=== PATIENT | male | born 1955 | race Caucasian/White ===

== ENCOUNTER 2021-03-14 04:19 | Inpatient (IN) | payer OTHER ==
[~2021-03-14] VITALS: Ht 180.3 cm; Wt 123.8 kg
[2021-03-14 04:24] VITALS: BP 149/86
[2021-03-14 04:49] LABS: ABSOLUTE LYMPHOCYTES 0.7 thou/uL (0.8-5.3); ABSOLUTE MONOCYTES 0.4 thou/uL (0.0-1.2); ABSOLUTE NEUTROPHILS 4.7 thou/uL (1.6-8.1); BASOPHILS 0.4 %; HEMOGLOBIN 14.5 gm/dL (14.0-18.0); LYMPHOCYTES 12.5 %; MCH 28.4 pg (26.0-34.0); MCHC 33.8 g/dL (28.0-37.0); MONOCYTES 6.9 %; MPV 10.6 fl. (7.2-11.1); NUCLEATED RBCS 0 /100WBC; PLATELET COUNT* 94 thou/uL (150-400); POLYS 80.2 %; RBC 5.12 mil/uL (4.50-6.00); RDW-CV 14.3 % (10.5-14.5); WBC 5.8 thou/uL (4.0-11.0)
[2021-03-14 05:00] LABS: CALCIUM 8.5 mg/dL (8.5-10.1); CREATININE 0.9 mg/dL (0.6-1.3); POTASSIUM 3.6 mmol/L (3.5-5.1)
[2021-03-14 05:03] LABS: INR 1.1
[2021-03-14 05:11] LABS: ALBUMIN 3.4 g/dL (3.4-5.0); MAGNESIUM 2.1 mg/dL (1.8-2.4); TOTAL BILIRUBIN 0.8 mg/dL (<0.1-1.0); TOTAL PROTEIN 7.8 g/dL (6.4-8.2)
[2021-03-14 05:30] LABS: INFLUENZA A ANTIGEN Negative (Negative); INFLUENZA B ANTIGEN Negative (Negative)
--- NOTE | 2021-03-14 09:05 | EKG ---
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[facility] : 1955 Requested By: Renetta Fuller Order Number: [id number] MD: Manny Cheung Measurements Intervals [place] Rate: 74 P: 10 LA: 180 QRS: -62 QRSD: 114 T: 73 QT: 468 QTc: 520 Interpretive Statements Sinus rhythm Incomplete right bundle branch block Abnormal R-wave progression, late transition LVH with IVCD, LAD and secondary repol abnrm Prolonged QT interval No previous ECG available for comparison Electronically Signed On 03-14-2021 9:04:56 VERIFICATION REP by Manny Cheung [email or web address] <ELECTRONICALLY SIGNED> By: Manny Cheung MD, FACC 03/14/21 0904 1 1 Manny Cheung MD, FAC /EPI
[2021-03-14 09:54] VITALS: BP 135/71
[2021-03-14 10:45] VITALS: BP 141/72
[2021-03-14 11:30] VITALS: BP 132/77
[2021-03-14 17:50] VITALS: BP 131/69
[2021-03-14 19:40] VITALS: BP 134/70
--- NOTE | 2021-03-14 22:53 | CON ---
[address] [address] CONSULTATION Name: ROBINMIHAELA Sulema Room: [address] IN M.R.#: [id number] Admission: 03/14/21 Attend Phys: Edmundo Cho MD Discharge: Date of : 55 Report #: [id number] THIS REPORT FOR: cc: FAM - No family physician/PCP FAM - No family physician/PCP Andrea Winters MD ~ DATE OF CONSULTATION: 03/14/2021 REQUESTING PHYSICIAN: Marshall Roper DO. INDICATION FOR CONSULTATION: COVID-19. HISTORY OF PRESENT ILLNESS: This is a 65 years old gentleman. He states that he is a lifetime nonsmoker. He has not been vaccinated for COVID-19. His body mass index is elevated to 38. He is now presented with respiratory complaints for about a week's duration. He has had a high-grade fever, currently at 38.0, has had a cough, shortness of breath, small amounts of sputum production. He did not describe the color. No chest pain, no swelling of lower extremities, no calf pain. The patient, however, has had diarrhea. He is also reported to have nausea earlier. The patient is currently requiring 4 liters of oxygen to maintain O2 saturation in the low 90s. There is a CT chest performed, which does show extensive infiltrates. There is also small pulmonary embolus noted. REVIEW OF SYSTEMS: For 12 points is negative, except as mentioned above. PAST MEDICAL HISTORY: Obesity, body mass index is 38. There is mention of hypertension on the records; however, the patient is not reporting any medications for this. Bilateral hernia surgery. SOCIAL HISTORY: Lifetime nonsmoker. No known history of heavy alcohol use or illegal drug use. CURRENT MEDICATIONS: List in [place] reviewed. HOME MEDICATIONS: No home medications. ALLERGIES: No known drug allergies. FAMILY HISTORY: No pertinent family history. PHYSICAL EXAMINATION: GENERAL: He is alert, awake and oriented, does not appear to be in any distress. VITAL SIGNS: Has a pulse of 75 and a blood pressure of 132/77, saturating 93% on 4 liters nasal cannula. He is afebrile now with a temperature of 36.8. [place] [address] CONSULTATION Name: MIHAELA KELLY Room: [address] IN [facility]#: [id number] Admission: 03/14/21 Attend Phys: Edmundo Cho MD Discharge: Date of : 55 Report #: [id number] However, earlier today, he had a temperature of up to 38.0. HEENT: Head is normocephalic and atraumatic. NECK: Does not show raised JVP. CHEST: Breath sounds are bilaterally equal. No added sounds. HEART: Regular. There is no murmur. ABDOMEN: Soft and nontender. EXTREMITIES: Lower extremities do show 1+ edema bilaterally. There is some evidence of chronic venous insufficiency as well. NEUROLOGIC: Moves all extremities bilaterally equally and spontaneously with no focal deficit identified. ASSESSMENT AND PLAN: 1. Acute hypoxemic respiratory failure, primarily secondary to COVID-19; however, he does have a small pulmonary embolus as well. 2. COVID-19, would continue with dexamethasone. Also, I recommend starting remdesivir, follow LFTs. I do not feel strongly either way regarding administering or holding off on convalescent plasma. Actemra is not available at this time. We will follow LFTs while on remdesivir. 3. Acute pulmonary embolism. His platelets are decreased to 94. The potential benefit of giving him anticoagulation still appears to outweigh risks and therefore, I went ahead and ordered Lovenox. We will follow platelets. If he remains stable, then I will switch this over to Eliquis later. He does have some chronic venous insufficiency on lower extremities. Therefore, I will recommend doing venous Dopplers as well and we will obtain an echocardiogram as well. 4. Pulmonary infiltrates. We will also continue with ceftriaxone and order doxycycline to cover for secondary bacterial infections. More cultures and serologies are also ordered. 5. Obesity. We will have a low threshold of ordering a BiPAP while asleep if his condition was to deteriorate. 6. Possible component of bronchospasm. He already is on DuoNebs. 7. Gastrointestinal prophylaxis, Protonix. 8. Clostridium difficile prophylaxis, Lactinex. 9. Hyperglycemia, insulin sliding scale. Thanks for this consultation. <ELECTRONICALLY SIGNED> By: Andrea Winters MD 03/14/21 2253 1252 [id number] Winters MD /nt
[2021-03-15] VITALS: BP 113/63
[2021-03-15 04:00] VITALS: BP 131/79
[2021-03-15 08:00] VITALS: BP 108/67
[2021-03-15 12:13] VITALS: BP 131/54
--- NOTE | 2021-03-15 13:25 | 2DMMODE ---
[place] [address] 2 D/M-MODE ECHOCARDIOGRAM Name: MIHAELA KELLY Room: [address] IN .R.#: [id number] Admission: 03/14/21 Attend Phys: Edmundo Cho, Discharge: Date of : 55 Date of Service: 03/15/21 1324 Report #: [id number] THIS REPORT FOR: cc: FAM - No family physician/PCP FAM - No family physician/PCP Carlos Enrique Edwards MD [facility] ~ APPROVED REPORT Study performed: 03/15/2021 10:05:01 EXAM: Comprehensive 2D, Doppler, and color-flow Echocardiogram Patient Location: In-Patient Room #: 111 Status: routine BSA: 2.41 HR: 51 bpm BP: 115/64 mmHg Rhythm: NSR Other Information Study Quality: Good Indications Pulmonary Embolism 2D Dimensions IVSd: 13.56 (7-11mm) LVOT Diam: 23.80 (18-24mm) LVDd: 55.11 mm PWd: 11.84 (7-11mm) Ascending Ao: 36.33 (22-36mm) LVDs: 36.40 (25-40mm) Aortic Root: 37.57 mm Volumes Left Atrial Volume (Systole) LA ESV Index: 24.50 mL/m2 Aortic Valve AoV Peak Narciso.: 1.75 m/s AO Peak Gr.: 12.22 mmHg LVOT Max P.12 mmHg AO Mean Gr.: 6.58 mmHg LVOT Mean P.35 mmHg LVOT Max V: 1.43 m/s AO V2 VTI: 34.50 cm LVOT Mean V: 0.96 m/s CHEVY (VTI): 4.20 cm2 LVOT V1 VTI: 32.56 [place] [address] 2 D/M-MODE ECHOCARDIOGRAM Name: MIHAELA KELLY Room: [address] IN ..#: [id number] Admission: 03/14/21 Attend Phys: Edmundo Cho, Discharge: Date of : 55 Date of Service: 03/15/21 1324 Report #: [id number] Mitral Valve E/A Ratio: 1.39 MV Decel. Time: 277.64 ms MV E Max Narciso.: 0.80 m/s MV PHT: 80.52 ms MVA (PHT): 2.73 cm2 TDI E/Lateral E': 5.71 E/Medial E': 8.00 Medial E' Narciso.: 0.10 m/s Lateral E' Narciso.: 0.14 m/s Pulmonary Valve PV Peak Narciso.: 1.32 m/s PV Peak Gr.: 7.00 mmHg Tricuspid Valve RAP Estimate: 5.00 mmHg TR Peak Gr.: 22.95 mmHg RVSP: 27.00 mmHg PA Pressure: 27.00 mmHg Left Ventricle The left ventricle is normal size. There is normal LV segmental wall motion. Mild concentric left ventricular hypertrophy. Left ventricular systolic function is normal. LVEF is 55-60%. Transmitral Doppler flow pattern suggests restrictive physiology. Right Ventricle The right ventricle is normal size. The right ventricular systolic function is normal. Atria Left atrium is mildly dilated. The right atrium size is normal. Aortic Valve The aortic valve is normal in structure. No aortic regurgitation is present. There is no aortic valvular stenosis. Mitral Valve The mitral valve is normal in structure. Trace mitral regurgitation. No evidence of mitral valve stenosis. Tricuspid Valve The tricuspid valve is normal in structure. Trace tricuspid regurgitation. [place] [address] 2 D/M-MODE ECHOCARDIOGRAM Name: MIHAELA KELLY Sulema Room: [address] IN [facility]#: [id number] Admission: 03/14/21 Attend Phys: Edmundo Cho, Discharge: Date of : 55 Date of Service: 03/15/21 1324 Report #: [id number] Pulmonic Valve The pulmonary valve is normal in structure. There is no pulmonic valvular regurgitation. Great Vessels The aortic root is normal in size. IVC is normal in size and collapses >50% with inspiration. Pericardium There is no pericardial effusion. <Conclusion> The left ventricle is normal size. Mild concentric left ventricular hypertrophy. Left ventricular systolic function is normal. LVEF is 55-60%. Transmitral Doppler flow pattern suggests restrictive physiology. Left atrium is mildly dilated. Trace mitral regurgitation. Trace tricuspid regurgitation. No pulmonary hypertension. IVC is normal in size and collapses >50% with inspiration. <ELECTRONICALLY SIGNED> By: Carlos Enrique Edwards MD, FACC 03/15/21 1324 23 23 Carlos Enrique Edwards MD, FACC /INF
[2021-03-15 14:03] LABS: HEMATOCRIT 40.7 % (42.0-52.0); HEMOGLOBIN 13.8 gm/dL (14.0-18.0); MCH 28.7 pg (26.0-34.0); MCV 84.5 fL (80.0-100.0); MPV 10.8 fl. (7.2-11.1); NUCLEATED RBCS 0 /100WBC; PLATELET COUNT* 124 thou/uL (150-400); RBC 4.81 mil/uL (4.50-6.00); RDW-CV 14.6 % (10.5-14.5); WBC 7.6 thou/uL (4.0-11.0)
[2021-03-15 14:17] LABS: ALBUMIN 2.9 g/dL (3.4-5.0); CALCIUM 8.4 mg/dL (8.5-10.1); MAGNESIUM 2.3 mg/dL (1.8-2.4); POTASSIUM 3.6 mmol/L (3.5-5.1); TOTAL BILIRUBIN 0.6 mg/dL (<0.1-1.0)
[2021-03-15 14:28] LABS: ABSOLUTE LYMPHOCYTES 0.5 thou/uL (0.8-5.3); ABSOLUTE MONOCYTES 0.8 thou/uL (0.0-1.2); ABSOLUTE NEUTROPHILS 6.4 thou/uL (1.6-8.1)
[2021-03-15 14:29] LABS: GIANT PLATELETS OCCASIONAL; PLATELET ESTIMATE ADEQUATE
[2021-03-15 16:05] VITALS: BP 127/67
[2021-03-15 19:40] VITALS: BP 124/68
[2021-03-16 00:55] VITALS: BP 115/57
[2021-03-16 04:00] VITALS: BP 120/60
[2021-03-16 04:38] LABS: HEMATOCRIT 38.9 % (42.0-52.0); MCH 28.6 pg (26.0-34.0); MCHC 33.3 g/dL (28.0-37.0); MCV 85.8 fL (80.0-100.0); MPV 10.8 fl. (7.2-11.1); RBC 4.53 mil/uL (4.50-6.00); RDW-CV 14.5 % (10.5-14.5)
[2021-03-16 04:58] LABS: CALCIUM 8.4 mg/dL (8.5-10.1); CREATININE 0.9 mg/dL (0.6-1.3); POTASSIUM 3.3 mmol/L (3.5-5.1)
[2021-03-16 13:32] VITALS: BP 111/65
[2021-03-16 17:10] VITALS: BP 112/62
[2021-03-16 20:00] VITALS: BP 128/60
[2021-03-16 22:06] LABS: MYCOPLASMA PNEUMONIA IgG <100 U/mL (0-99); MYCOPLASMA PNEUMONIA IgM <770 U/mL (0-769)
[2021-03-17] VITALS: BP 104/47
[2021-03-17 04:37] VITALS: BP 112/60
[2021-03-17 05:04] LABS: ABSOLUTE LYMPHOCYTES 0.4 thou/uL (0.8-5.3); ABSOLUTE MONOCYTES 0.4 thou/uL (0.0-1.2); BASOPHILS 0.1 %; HEMATOCRIT 38.5 % (42.0-52.0); HEMOGLOBIN 12.9 gm/dL (14.0-18.0); LYMPHOCYTES 6.5 %; MCH 28.6 pg (26.0-34.0); MCHC 33.6 g/dL (28.0-37.0); MCV 85.1 fL (80.0-100.0); MONOCYTES 7.2 %; MPV 10.5 fl. (7.2-11.1); NUCLEATED RBCS 0 /100WBC; PLATELET COUNT* 155 thou/uL (150-400); POLYS 86.2 %; RBC 4.52 mil/uL (4.50-6.00); RDW-CV 14.6 % (10.5-14.5); WBC 5.8 thou/uL (4.0-11.0)
[2021-03-17 05:38] LABS: ALBUMIN 2.9 g/dL (3.4-5.0); CALCIUM 8.3 mg/dL (8.5-10.1); CREATININE 1.1 mg/dL (0.6-1.3); MAGNESIUM 2.5 mg/dL (1.8-2.4); POTASSIUM 3.4 mmol/L (3.5-5.1); TOTAL BILIRUBIN 0.5 mg/dL (<0.1-1.0); TOTAL PROTEIN 6.7 g/dL (6.4-8.2)
[2021-03-17 08:00] VITALS: BP 109/59
[2021-03-17] MEDS ORDERED: DEXAMETHASONE1 MG PO (10:43)
[2021-03-17] MEDS ORDERED: COMBIVENT RESPIM4 GM INH (10:43)
[2021-03-17] MEDS ORDERED: XARELTO1 EACH PO (10:43)
[2021-03-17] MEDS ORDERED: VITAMIN D31250 MCG PO (10:47)
[2021-03-17 10:49] VITALS: BP 109/59
[2021-03-17 12:00] VITALS: BP 115/64
[2021-03-17 16:00] VITALS: BP 134/72
== END 2021-03-17 17:40 | disposition home or self-care (01) | DRG 177 ==
LOC: M.ERS 04:19 → M.TBA-ER 07:09 → M.ORTHSURG 07:09
PROVIDERS: Emergency Medicine; Internal Medicine; Internal Medicine Critical Care Medicine; ADMIT Internal Medicine; ATTEND Internal Medicine
PROC: XW033E5 Introduction of Remdesivir Anti-infective into Peripheral Vein, Percutaneous Approach, New Technology Group 5 (ICD-10-PCS; 2021-03-14)
PROC: 5A0945A Assistance with Respiratory Ventilation, 24-96 Consecutive Hours, High Flow/Velocity Cannula (ICD-10-PCS; principal; 2021-03-15)
DX: U07.1 COVID-19 (principal); J96.01 Acute respiratory failure with hypoxia; J12.82 Pneumonia due to coronavirus disease 2019; I26.99 Other pulmonary embolism without acute cor pulmonale; J15.9 Unspecified bacterial pneumonia; I11.0 Hypertensive heart disease with heart failure; I50.9 Heart failure, unspecified; R73.9 Hyperglycemia, unspecified; K29.00 Acute gastritis without bleeding; E66.9 Obesity, unspecified; Z68.38 Body mass index [BMI] 38.0-38.9, adult

== ENCOUNTER 2021-04-04 15:03 | Emergency (ER) | payer OTHER ==
[~2021-04-04] VITALS: Ht 180.3 cm; Wt 113.4 kg
[~2021-04-04 15:03] MED LIST: COMBIVENT RESPIM4 GM INH; DEXAMETHASONE1 MG PO; VITAMIN D31250 MCG PO; XARELTO1 EACH PO
[2021-04-04 21:40] VITALS: BP 185/115
== END 2021-04-04 21:40 | disposition left against medical advice (07) ==
LOC: M.ERS 15:03
DX: R31.0 Gross hematuria (principal); Z53.21 Procedure and treatment not carried out due to patient leaving prior to being seen by health care provider